=== PATIENT | female | born 1945 | race Caucasian/White ===

== ENCOUNTER 2017-06-18 11:36 | Emergency (ER) | payer MEDICARE ==
[2017-06-18] MEDS ORDERED: NITROGLYCERIN OINT 1 INCH/GM PACKET TOPICAL STA (12:16)
[2017-06-18] MEDS ORDERED: MORPHINE SULFATE 4 MG/ML SYRINGE IV STA (12:16)
[2017-06-18] MEDS ORDERED: SODIUM CHLORIDE 0.9% 1,000 ML IV STA (12:16)
[2017-06-18] MEDS ORDERED: ONDANSETRON 4 MG/2 ML VIAL IVP STA (12:16)
[2017-06-18] MEDS ORDERED: RX INFO: IV CONTRAST WAS GIVEN 1 EACH MISC MISCELLANE PRN (12:18)
[2017-06-18] MEDS ORDERED: hydrALAZINE HCL 20 MG/ML 1 ML VIAL IVP STA (12:19)
[2017-06-18 12:47] LABS: Basophils % (A) 1 %; Eosinophils # (A) 0.1 k/uL (0-0.7); Eosinophils % (A) 1 %; Lymphocytes # (A) 2.1 k/uL (1.0-4.8); Lymphocytes % (A) 40 %; MCH 27.7 pg (25.0-35.0); MCHC 31.7 g/dL (31.0-37.0); MCV 87.3 fL (80.0-100.0); Mean Platelet Volume 6.6; Monocytes # (A) 0.5 k/uL (0-1.0); Monocytes % (A) 9 %; Neutrophils # (A) 2.5 k/uL (1.3-7.7); Neutrophils % (A) 47 %; Platelet Count 292 k/uL (150-450); RBC 5.05 m/uL (3.80-5.40); RDW 12.6 % (11.5-15.5); WBC 5.3 k/uL (3.8-10.6)
--- NOTE | 2017-06-18 12:48 | XR ---
EXAMINATION TYPE: XR chest 2V DATE OF EXAM: 06/18/2017 COMPARISON: 11/21/2010 HISTORY: Shortness of breath TECHNIQUE: Frontal and lateral views of the chest are obtained. FINDINGS: Scattered senescent parenchymal changes noted. Hyperinflation compatible with COPD. No evidence for infiltrate. No evidence for atelectasis. Heart size is stable. Mediastinal structures are stable and grossly unremarkable. No evidence for hilar prominence. Degenerative changes dorsal spine. IMPRESSION: 1. No evidence for acute pulmonary disease.
[2017-06-18 12:51] LABS: Partial Thromboplastin Time 26.8 sec (22.0-30.0); Prothrombin Time 10.2 sec (9.0-12.0)
[2017-06-18 12:53] LABS: ALT 29 U/L (9-52); AST 23 U/L (14-36); Albumin 4.4 g/dL (3.5-5.0); Alkaline Phosphatase 88 U/L (38-126); Anion Gap 12 mmol/L; Blood Urea Nitrogen 12 mg/dL (7-17); Calcium 9.6 mg/dL (8.4-10.2); Carbon Dioxide 25 mmol/L (22-30); Chloride 101 mmol/L (98-107); Glucose 118 mg/dL (74-99); Magnesium 1.9 mg/dL (1.6-2.3); Potassium 3.9 mmol/L (3.5-5.1); Sodium 138 mmol/L (137-145); Total Bilirubin 0.4 mg/dL (0.2-1.3); Total Protein 7.3 g/dL (6.3-8.2)
[2017-06-18 13:05] LABS: Creatine Kinase 86 U/L (30-135)
[2017-06-18 13:07] VITALS: PULSE 54
[2017-06-18] MEDS ORDERED: LORazepam 1 MG TAB PO STA (13:11)
[2017-06-18 13:18] LABS: Creatine Kinase MB 0.5 ng/mL (0.0-2.4); Troponin I <0.012 ng/mL (0.000-0.034)
[2017-06-18] MEDS ORDERED: PANTOPRAZOLE 40 MG/10 ML VIAL IVP SCH (13:45)
--- NOTE | 2017-06-18 14:23 | ED ---
Chest Pain HPI - General Chief Complaint: Chest Pain Stated Complaint: Weakness/Dizziness Time Seen by Provider: 06/18/17 11:51 Source: patient Mode of arrival: wheelchair Limitations: no limitations - History of Present Illness Initial Comments: 72 years old female has no history of heart disease presents with heartburn ongoing for last 4 hours and also had a chest discomfort in the anterior chest it was very mild degree and she also noticed her blood pressure was elevated she do not have any hypertension. Denies any nausea no vomiting no diaphoresis has no history of heart disease discomfort been off and on mild distress since this morning denies any shortness of breath no pleuritic chest pain past medical history is unremarkable past surgical history is unremarkable last surgery she has this when she was 28 years old she had a tubal ligation, devious system is unremarkable otherwise - Related Data Home Medications Medication Instructions Recorded Confirmed Shaklee Multivitamin Pack 1 pack PO DAILY 06/18/17 06/18/17 Previous Rx's Medication Instructions Recorded Aspirin 325 mg PO DAILY #90 tab 06/18/17 Allergies Allergy/AdvReac Type Severity Reaction Status Date / Time No Known Allergies Allergy Verified 06/18/17 12:20 Review of Systems ROS Statement: Those systems with pertinent positive or pertinent negative responses have been documented in the HPI. ROS Other: All systems not noted in ROS Statement are negative. EKG Findings - EKG Comments: EKG Findings:: KG is normal sinus rhythm ventricular rate is 61 MI interval is 144 QRS duration is 86 QT/QTc is 420/422 review of this EKG reveals mild ST segment depression in lead [address] elevation or ST depression noticed any other complaints Past Medical History Past Medical History: Osteoarthritis (OA) History of Any Multi-Drug Resistant Organisms: None Reported Past Surgical History: Tubal Ligation Past Anesthesia/Blood Transfusion Reactions: No Reported Reaction Past Psychological History: No Psychological Hx Reported Smoking Status: Never smoker Past Alcohol Use History: None Reported Past Drug Use History: None Reported - Past Family History Sister(s) Family Medical History: Cancer General Exam - General Exam Comments Initial Comments: General: The patient is awake and alert, in no distress, and does not appear acutely ill. Skin: Skin is warm and dry and no rashes or lesions are noted. Eye: Pupils are equal, round and reactive to light, extra-ocular movements are intact; there is normal conjunctiva bilaterally. Ears, nose, mouth and throat: There are moist mucous membranes and no oral lesions. Neck: The neck is supple, there is no tenderness or JVD. Cardiovascular: There is a regular rate and rhythm. No murmur, rub or gallop is appreciated. Respiratory: To auscultation bilateral, no wheezing no rhonchi no distress respiratory linn noticed Gastrointestinal: Soft, non-distended, non-tender abdomen without masses or organomegaly noted. There is no rebound or guarding present. Bowel sounds are unremarkable. Back: There is no tenderness to palpation in the midline. There is no obvious deformity. Musculoskeletal: Normal ROM, no tenderness, There is no pedal edema. There is no calf tenderness or swelling. No cords were appreciated. Neurological: CN II-XII intact, Cranial nerves III through XII are intact. There are no obvious motor or sensory deficits. Coordination appears grossly intact. Speech is normal. Psychiatric: Cooperative, appropriate mood & affect, normal judgment. Limitations: no limitations Course Vital Signs 06/18/17 06/18/17 06/18/17 11:44 12:37 13:05 Pulse Rate 68 61 54 L Respiratory 16 18 18 Rate Blood Pressure 208/98 173/92 163/89 O2 Sat by Pulse 98 98 98 Oximetry 06/18/17 14:33 Pulse Rate 54 L Respiratory 16 Rate Blood Pressure 147/74 O2 Sat by Pulse 97 Oximetry Patient was discussed with Dr. Morales, he agreed the patient needs to be observed for 3 sets of cardiac markers and now CT chest angiogram to rule out any aortic dissection, so for EKG troponin chest x-ray CBC compressive metabolic panel are absolutely normal CT is pending. 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 Mon her CT chest to rule out aortic dissection chest x- ray ruled out any pneumonia or pneumothorax echocardiogram was done and report is pending, ideally patient needs to come in for observation but she has a family situation she is unable to come in and she is looking after her disabled no echo report once that's negative then she will be dispositioned to home Reevaluation #2: Patient is reassessed at 16 5, she is pain-free, troponin is normal, CT angiogram ruled out any aortic dissection is not reported yet and she will see Dr. Yaa downing in the morning and she will also be referred to cardiology associates she will call first thing in the morning to set up a cardiology follow-up she would prefer to see Dr Steinberg her sees the same doctor 06/18/17 16:09 Disposition Clinical Impression: Chest pain, Hypertension Disposition: HOME SELF-CARE Condition: Good Instructions: Chest Pain (ED) Prescriptions: Aspirin 325 mg PO DAILY #90 tab Referrals: Yanira Morales MD [Primary Care Provider] - 1-2 days Andrew Pascual MD [STAFF PHYSICIAN] - 1-2 days
--- NOTE | 2017-06-18 14:43 | CT ---
EXAMINATION TYPE: CT angio thoracic/abd aorta DATE OF EXAM: 06/18/2017 COMPARISON: NONE HISTORY: Heart burn CT DLP: 1907 mGycm. Automated Exposure Control for Dose Reduction was Utilized. CONTRAST: CT scan of the thorax, abdomen and pelvis is performed with IV Contrast, patient injected with 100 mL of Omnipaque 350. FINDINGS: LUNGS: The lungs are grossly clear, there is no concerning parenchymal mass or nodule identified. T here is no pleural effusion or pneumothorax seen. The tracheobronchial tree is patent. MEDIASTINUM: There are no greater than 1 cm hilar or mediastinal lymph nodes. No pericardial effusi on is seen. OTHER: The aorta is patent, there is no aneurysm. The 3 super aortic branch vessels are patent, the c eliac axis, superior mesenteric artery, renal arteries, inferior mesenteric, common iliac, internal a nd external iliac, common femoral, proximal superficial femoral arteries are patent, there is no evid ent filling defect. Pulmonary arteries show no abnormal filling defect. There is a small hiatal hernia. LIVER/GB: No significant abnormality is appreciated. PANCREAS: No significant abnormality is seen. SPLEEN: No significant abnormality is seen. ADRENALS: No significant abnormality is seen. KIDNEYS: No significant abnormality is seen. BOWEL: No significant abnormality is seen. GENITAL ORGANS: No gross abnormality seen. LYMPH NODES: No greater than 1cm abdominal or pelvic lymph nodes are appreciated. OSSEOUS STRUCTURES: No significant abnormality is seen. OTHER: No significant additional abnormality is seen. IMPRESSION: The aorta is patent. No evident aneurysm or dissection. Small hiatal hernia.
[2017-06-18 16:10] VITALS: BP 124/62; RESP 17; TEMP 96.4
--- NOTE | 2017-06-19 11:08 | ECHOF ---
Referral Reason:chest pain, LVF MEASUREMENTS -------- HEIGHT: 157.5 cm WEIGHT: 66.7 kg BP: RVIDd: 2.1 cm (< 3.3) IVSd: 1.3 cm (0.6 - 1.1) LVIDd: 3.2 cm (3.9 - 5.3) LVPWd: 1.2 cm (0.6 - 1.1) IVSs: 1.4 cm LVIDs: 2.4 cm LVPWs: 1.2 cm LA Diam: 2.9 cm (2.7 - 3.8) LAESV Index (A-L): 28.69 ml/m Ao Diam: 2.8 cm (2.0 - 3.7) AV Cusp: 1.8 cm (1.5 - 2.6) LA Diam: 3.0 cm (2.7 - 3.8) MV EXCURSION: 11.540 mm (> 18.000) MV EF SLOPE: 46 mm/s (70 - 150) EPSS: 0.6 cm MV E Frandy: 0.64 m/s MV DecT: 282 ms MV A Frandy: 0.79 m/s MV E/A Ratio: 0.82 RAP: 5.00 mmHg RVSP: 21.17 mmHg FINDINGS -------- Sinus rhythm. This was a technically good study. The left ventricular size is normal. There is mild concentric left ventricular hypertrophy. Overa ll left ventricular systolic function is normal with, an EF between 55 - 60 %. The right ventricle is normal in size. LA is midly dilated 29-33ml/m2. The right atrial size is normal. The aortic valve is trileaflet and appears structurally normal. There is mild aortic regurgitation. The mitral valve is normal. Mild mitral regurgitation is present. Mild tricuspid regurgitation present. There is no evidence of pulmonary hypertension. The right v entricular systolic pressure, as measured by Doppler, is 21.17mmHg. Trace/mild (physiologic) pulmonic regurgitation. The aortic root size is normal. Echo free space represents a pericardial fat pad. CONCLUSIONS -------- 1. Sinus rhythm. 2. This was a technically good study. 3. The left ventricular size is normal. 4. There is mild concentric left ventricular hypertrophy. 5. Overall left ventricular systolic function is normal with, an EF between 55 - 60 %. 6. LA is midly dilated 29-33ml/m2. 7. The aortic valve is trileaflet and appears structurally normal. 8. There is mild aortic regurgitation. 9. Mild mitral regurgitation is present. 10. Mild tricuspid regurgitation present. 11. There is no evidence of pulmonary hypertension. 12. Trace/mild (physiologic) pulmonic regurgitation. 13. Echo free space represents a pericardial fat pad. SNACK STEWARD: Susan Smith RDCS
== END 2017-06-18 16:23 | disposition home or self-care (01) ==
LOC: EC 11:36
DX: I10 Essential (primary) hypertension (principal); R07.89 Other chest pain; Z98.51 Tubal ligation status; Z79.899 Other long term (current) drug therapy; Z53.29 Procedure and treatment not carried out because of patient's decision for other reasons
CPT/HCPCS: 36415; 93005; 93306; 80053; 82550; 82553; 83735; 84484; 85025; 85610; 85730; 71046; 75635; 71275; 99285; 96360; 96361 ×3; Q9967

== ENCOUNTER 2017-07-01 10:52 | Day surgery (SDC) | payer MEDICARE ==
[2017-06-30 08:06] VITALS: BMI 26.4
[~2017-07-01 10:52] MED LIST: LACTATED RINGERS 1,000 ML IV SCH
[2017-07-01 11:22] VITALS: RESP 16; TEMP 98.1
[2017-07-01] MEDS ORDERED: LIDOCAINE 1% 20 ML VIAL (10MG/ML) FOR IV START INTRADERMA ONE (11:40)
[2017-07-01] MEDS ORDERED: PROPOFOL 10 MG/ML 20 ML VIAL IV ONE (12:40)
[2017-07-01] MEDS ORDERED: LIDOCAINE 1% INJ 10MG/ML (20 ML MDV) ONE (12:40)
--- NOTE | 2017-07-01 12:57 | P.PCN ---
Date of Procedure: 07/01/17 Procedure(s) Performed: BRIEF HISTORY: Patient is a 72-year-old pleasant white female, scheduled for an elective colonoscopy as a part of evaluation of prior history of colon polyps. PROCEDURE PERFORMED: Colonoscopy. PREOPERATIVE DIAGNOSIS: History of colon polyps.. IV sedation per Anesthesia. PROCEDURE: After informed consent was obtained, the patient, was brought into the endoscopy unit. IV sedation was administered by Anesthesia under continuous monitoring. Digital rectal examination was normal. Initially the Olympus CF- 160 flexible video colonoscope was then inserted in the rectum, gradually advanced into the sigmoid colon and further advancement was not possible. The scope was removed and a pediatric colonoscope was then introduced into the rectum and gradually advanced into the cecum without any difficulty. Careful examination was performed as the scope was gradually being withdrawn. Ileocecal valve and the appendiceal orifice were visualized and appeared normal. Prep was excellent. Mucosa of the cecum, ascending colon, transverse colon, descending colon, sigmoid colon, and rectum appeared normal. Retroflexion was performed in the rectum and no lesions were seen. The patient tolerated the procedure well. IMPRESSION: Normal-appearing colon from rectum to cecum with no evidence of colorectal neoplasia.. RECOMMENDATIONS: Findings of this examination were discussed with the patient as well as a family. She was advised to have a repeat surveillance colonoscopy in 5 years from now because of the prior history of colon polyps.
[2017-07-01 13:23] VITALS: BP 166/75; PULSE 69
== END 2017-07-01 13:41 | disposition home or self-care (01) ==
LOC: ORWHC2ENDO 10:52
PROVIDERS: ATTEND Internal Medicine Gastroenterology
DX: Z12.11 Encounter for screening for malignant neoplasm of colon (principal); Z86.010 Personal history of colon polyps
CPT/HCPCS: J2001; J2704; G0105; 45378

== ENCOUNTER → 2017-08-28 | Outpatient (CLI) | payer MEDICARE ==
--- NOTE | 2017-08-28 09:14 | BD ---
EXAMINATION TYPE: MG DEXA axial skeleton. DATE OF EXAM: 08/28/2017 COMPARISON: 07.14.2013 CLINICAL HISTORY: 72 YR OLD FEMALE....ICD-10 CODE: M81.0 OSTEOPOROSIS Height: 61 Weight: 149 FRAX RISK QUESTIONS: Alcohol (3 or more units per day): NO Family History (Parent hip fracture): NO Glucocorticoids (More than 3mos): NO (Ex: prednisone, prednisolone, methylprednisolone, dexamethasone, and hydrocortisone). History of Fracture in Adulthood: NO Secondary Osteoporosis: NO 1. Type 1 Diabetes: NO 2. Hyperthyroidism: NO 3. Menopause before 45: NO 4. Malnutrition: NO 5. Chronic liver disease: NO Rheumatoid Arthritis: NO Current Tobacco Use: NO RISK FACTORS HISTORY OF: Active: YES Diet low in dairy products/other sources of calcium: NO Postmenopausal woman: AT AGE 57 YRS OLD Hyperparathyroidism: NO Adrenal Insufficiency: NO MEDICATIONS: Additional Medications: VIT D IN WINTER, MULTIVITAMIN WITH CALCIUM Additional History: NONE TO NOTE EXAM MEASUREMENTS: Bone mineral densitometry was performed using the Ynsect System. Bone mineral density as measured about the Lumbar spine is: ----- L1-L4(G/cm2): 0.791 T Score Values are as follows: ----- L1: -3.0 ----- L2: -3.4 ----- L3: -3.2 ----- L4: -3.4 ----- L1-L4: -3.2 Bone mineral density has: Decreased -9.0% since study of: 07.14.2013 Bone mineral density about the R hip (g/cm2): 0.806 Bone mineral density about the L hip (g/cm2): 0.823 T Score values are as follows: -----R Neck: -2.0 -----L Neck: -1.9 -----R Total: -1.6 -----L Total: -1.5 Bone mineral density has: Increased 2.4% since study of: 07.14.2013 FRAX%S: THERE IS A 12.2% CHANCE OF A MAJOR OSTEOPOROSIS FX AND A 2.5% FOR HIP FX.....PROBABILITY O F FX IN 10 YRS TIME IMPRESSION: Osteoporosis (T Score less than -2.5) overall in the low back. There is increased fracture risk and therapy is usually indicated based on age. Re-Screen 1-2 years. NOTE: T-SCORE=SD OF THE YOUNG ADULT MEAN.
--- NOTE | 2017-08-31 10:40 | MM ---
Reason for exam: screening (asymptomatic). Last mammogram was performed 1 year and 9 months ago. History: Patient is postmenopausal. Took hormonal contraceptives for 3 years. Took estrogen for 3 years. Took progesterone for 3 years. Physical Findings: A clinical breast exam by your physician is recommended on an annual basis and results should be correlated with mammographic findings. MG 3D Screening Mammo W/Cad Bilateral CC and MLO view(s) were taken. Prior study comparison: July 14, 2013, bilateral digital screening mammo w/CAD. March 31, 2011, bilateral digital screening mammo w/CAD. The breast tissue is heterogeneously dense. This may lower the sensitivity of mammography. No suspicious abnormality. No significant changes when compared with prior studies. ASSESSMENT: Negative, BI-RAD 1 RECOMMENDATION: Routine screening mammogram of both breasts in 1 year.
== END | disposition home or self-care (01) ==
LOC: RADMAMWWP 08:10
PROVIDERS: ATTEND Internal Medicine
DX: Z12.31 Encounter for screening mammogram for malignant neoplasm of breast (principal); M81.0 Age-related osteoporosis without current pathological fracture
CPT/HCPCS: 77063; 77067; 77080

== ENCOUNTER → 2021-10-01 | Outpatient (CLI) | payer MEDICARE | END | disposition home or self-care (01) | LOC: LABMAIN 11:17 | PROVIDERS: ATTEND Emergency Medicine | DX: U07.1 COVID-19 (principal) | CPT/HCPCS: 87635 ==

== ENCOUNTER 2021-10-02 08:15 | Emergency (ER) | payer MEDICARE ==
[2021-10-02 08:19] VITALS: BP 132/70; PULSE 102; RESP 16; TEMP 98.1
--- NOTE | 2021-10-02 08:32 | ED ---
General Adult HPI - General Chief complaint: Shortness of Breath Stated complaint: Covid+ Time Seen by Provider: 10/02/21 08:24 Source: patient, RN notes reviewed Mode of arrival: ambulatory Limitations: no limitations - History of Present Illness Initial comments: Patient is a pleasant 76-year-old female presenting to the emergency department with concerns for COVID-19 infection. Onset of symptoms was 2-3 days ago. Patient tested positive yesterday. Patient does have cough with mild chest congestion. Mild fatigue. Mild nasal congestion. Patient states she feels like she has a cold. No loss of taste or smell. No vomiting or diarrhea. - Related Data Home Medications Medication Instructions Recorded Confirmed Atorvastatin [Lipitor] 40 mg PO DAILY 10/02/21 10/02/21 Bimatoprost [Lumigan 0.01% Ophth 1 drop BOTH EYES DAILY 10/02/21 10/02/21 Soln] Losartan Potassium 100 mg PO DAILY 10/02/21 10/02/21 Timolol 0.5% Ophth Soln [Timoptic 1 drop LEFT EYE DAILY 10/02/21 10/02/21 0.5% Ophth Soln] Allergies Allergy/AdvReac Type Severity Reaction Status Date / Time No Known Allergies Allergy Verified 10/02/21 08:19 Review of Systems ROS Statement: Those systems with pertinent positive or pertinent negative responses have been documented in the HPI. ROS Other: All systems not noted in ROS Statement are negative. Constitutional: Denies: fever Eyes: Denies: eye pain ENT: Reports: congestion. Denies: ear pain Respiratory: Reports: cough. Denies: dyspnea Cardiovascular: Denies: chest pain Endocrine: Reports: fatigue Gastrointestinal: Denies: abdominal pain Genitourinary: Denies: dysuria Musculoskeletal: Denies: back pain Skin: Denies: rash Neurological: Denies: weakness Past Medical History Past Medical History: No Reported History History of Any Multi-Drug Resistant Organisms: None Reported Past Surgical History: Tubal Ligation Past Anesthesia/Blood Transfusion Reactions: No Reported Reaction Past Psychological History: No Psychological Hx Reported Past Alcohol Use History: None Reported Past Drug Use History: None Reported - Past Family History Sister(s) Family Medical History: Cancer Additional Family Medical History / Comment(s): pancreatic General Exam Limitations: no limitations General appearance: alert, in no apparent distress Head exam: Present: normocephalic Eye exam: Present: normal appearance Neck exam: Present: normal inspection Respiratory exam: Present: normal lung sounds bilaterally Cardiovascular Exam: Present: regular rate, normal rhythm GI/Abdominal exam: Present: soft. Absent: tenderness Extremities exam: Present: normal inspection. Absent: pedal edema, calf tenderness Neurological exam: Present: alert Psychiatric exam: Present: normal affect, normal mood Skin exam: Present: normal color Course Vital Signs 10/02/21 08:17 Temperature 98.1 F Pulse Rate 102 H Respiratory 16 Rate Blood Pressure 132/70 O2 Sat by Pulse 94 L Oximetry Medical Decision Making - Medical Decision Making Patient originally wanted antibodies however and after discussion with her she is receptive to Paxlovid prescription. Medicine retractions reviewed and patient advised to hold Lipitor if she arty took this morning and then she can start paxlovid tonight. Disposition Clinical Impression: COVID-19 Disposition: HOME SELF-CARE Condition: Stable Instructions (If sedation given, give patient instructions): COVID-19 (Coronavirus Disease 2019) (ED) Additional Instructions: Please do follow-up with your primary care doctor in the next day or 2 for recheck. Return for difficulty breathing, not tolerating fluids, worsening symptoms or other concerns. [id number] vitamin C, vitamin D, and zinc. Tylenol if needed. Prescription for Paxlovid has been provided. Start medication today. If you took your Lipitor today, then start at dinner time. Hold Lipitor until Paxlovid is completed Is patient prescribed a controlled substance at d/c from ED?: No Referrals: Yanira Morales MD [Primary Care Provider] - 1-2 days Time of Disposition: 08:31
== END 2021-10-02 09:05 | disposition home or self-care (01) ==
LOC: EC 08:15
DX: U07.1 COVID-19 (principal)

== ENCOUNTER → 2023-08-18 | Outpatient (CLI) | payer MEDICARE ==
--- NOTE | 2023-08-18 23:23 | US ---
EXAMINATION TYPE: US kidneys/renal and bladder DATE OF EXAM: 08/18/2023 COMPARISON: NONE CLINICAL INDICATION: Female, 78 years old with history of R30.0 DYSURIA; EXAM MEASUREMENTS: Right Kidney: 8.6 x 4.0 x 3.9 cm Left Kidney: 8.4 x 4.7 x 4.0 cm Right Kidney: small in size, inferior pole limited by overlying bowel gas, 0.5cm echogenic focus late ral mid pole Left Kidney: small in size Bladder: wnl Bilateral Jets seen: no IMPRESSION: 1. Nonshadowing inferior pole right renal stone
== END | disposition home or self-care (01) ==
LOC: RADUSWWP 12:47
PROVIDERS: ATTEND Internal Medicine
DX: N20.0 Calculus of kidney (principal); R30.0 Dysuria
CPT/HCPCS: 76770